=== PATIENT | male | born 1995 | race Caucasian/White ===

== ENCOUNTER 2025-03-20 09:23 | Emergency (ER) | payer MEDICAID ==
[~2025-03-20] VITALS: Ht 182.9 cm; Wt 65.9 kg
[~2025-03-20 09:23] MED LIST: BUSP5TAB20 PO; POLY17PO62 PO; QUET200T30 PO; QUET300T19 PO
[2025-03-20 09:53] LABS: COVID AG,FIA SOURCE NASAL SWAB
[2025-03-20 10:04] VITALS: BP 118/75; PULSE 86; RESP 18; TEMP 98.1; O2SAT 99
[2025-03-20 10:08] LABS: PLATELET COUNT (AUTO) 263 K/uL (150-450); RED BLOOD CELL COUNT(AUTO) 3.94 MIL/uL (4.50-5.90); RED CELL DISTRIBUTION WIDTH 14.3 % (11.5-14.5); WHITE BLOOD COUNT (AUTO) 10.0 K/uL (4.5-11.0)
[2025-03-20 10:13] LABS: SARS-COV2 (COVID) ANTIGEN,FIA Negative (Negative)
[2025-03-20 10:14] LABS: CALCIUM, TOTAL 8.8 mg/dL (8.8-10.5); CREATININE 0.52 mg/dL (0.60-1.30); GLOMERULAR FILTR. RATE CALC > 60 mL/min (>60); GLUCOSE,RANDOM 98 mg/dL (70-110); SODIUM SERUM 143 mmol/L (136-145); UREA NITROGEN, BLOOD 8 mg/dL (7-18)
== END 2025-03-20 12:17 | disposition short-term general hospital (02) ==
LOC: EMS 09:28
DX: F25.0 Schizoaffective disorder, bipolar type (principal); R45.851 Suicidal ideations; F12.90 Cannabis use, unspecified, uncomplicated; Z79.899 Other long term (current) drug therapy; Z20.822 Contact with and (suspected) exposure to COVID-19
CPT/HCPCS: 99285; 87426; 80048; 85025; 36415; G0480

== ENCOUNTER 2025-03-20 17:49 | Inpatient (IN) | payer MEDICAID ==
[~2025-03-20] VITALS: Ht 182.9 cm; Wt 66.4 kg
[2025-03-20 21:30] VITALS: BP 126/72; PULSE 72; RESP 18; TEMP 98.2; O2SAT 99
[2025-03-20] MEDS: INFLUENZA VIRUS VACCINE TVS (6MO+) 2025-26/PF 45 MCG/0.5 ML SYRINGE IM. ONE (22:57)
[2025-03-21] MEDS: ZOLPIDEM TARTRATE 10 MG TABLET PO PRN (01:38)
[2025-03-21] MEDS ORDERED: ALBUTEROL SULFATE HFA 90 MCG/PUFF 8 GM INHALER IH PRN (05:45)
[2025-03-21] MEDS ORDERED: BENZOCAINE/MENTHOL [CEPACOL] LOZENGE PO PRN (05:45)
[2025-03-21] MEDS ORDERED: MAG HYDROX/ALUMINUM HYD/SIMETH ES 30 ML SUSPENSION UDCUP PO PRN (05:45)
[2025-03-21] MEDS ORDERED: OMEPRAZOLE 20 MG CAPSULE PO PRN (05:45)
[2025-03-21] MEDS ORDERED: PETROLATUM,WHITE 28 GM JELLY TP PRN (05:45)
[2025-03-21] MEDS ORDERED: ACETAMINOPHEN 325 MG TABLET PO PRN (05:45)
[2025-03-21] MEDS ORDERED: BACITRACIN 28 GM OINTMENT TP PRN (05:45)
[2025-03-21] MEDS ORDERED: LOPERAMIDE HCL 2 MG CAPSULE PO PRN (05:45)
[2025-03-21] MEDS ORDERED: ONDANSETRON 4 MG TABLET PO PRN (05:45)
[2025-03-21 08:29] VITALS: BP 102/64; PULSE 60; RESP 16; TEMP 98.6; O2SAT 99
[2025-03-21 10:12] LABS: PLATELET COUNT (AUTO) 264 K/uL (150-450); RED BLOOD CELL COUNT(AUTO) 3.82 MIL/uL (4.50-5.90); RED CELL DISTRIBUTION WIDTH 14.1 % (11.5-14.5); WHITE BLOOD COUNT (AUTO) 12.2 K/uL (4.5-11.0)
[2025-03-21 10:30] LABS: ASPARTATE AMINOTRANSFERASE 60 U/L (15-37); CALCIUM, TOTAL 9.1 mg/dL (8.8-10.5); CHOL/HDL RATIO 3.9 (4.2-7.3); CREATININE 0.45 mg/dL (0.60-1.30); GLOMERULAR FILTR. RATE CALC > 60 mL/min (>60); GLUCOSE,RANDOM 87 mg/dL (70-110); LDL CHOL (CALC.) 82 mg/dL (0-130); SODIUM SERUM 137 mmol/L (136-145); TOTAL PROTEIN, SERUM 6.5 g/dL (6.4-8.2); UREA NITROGEN, BLOOD 13 mg/dL (7-18)
[2025-03-21 10:51] LABS: ALCOHOL, BLOOD (SERUM) < 3 mg/dL (0-10)
[2025-03-21 20:20] VITALS: BP 105/61; PULSE 85; RESP 19; TEMP 98; O2SAT 98
[2025-03-22 00:15] VITALS: BP 107/68; PULSE 89; RESP 18; TEMP 98.6; O2SAT 97
[2025-03-22 08:06] VITALS: BP 111/63; PULSE 86; RESP 18; TEMP 97.6; O2SAT 99
[2025-03-22 09:47] LABS: APPEARANCE,URINE HAZY (CLEAR); GLUCOSE, URINE (UA) NEGATIVE (NEGATIVE); LEUKOCYTE ESTERASE ,URINE NEGATIVE (NEGATIVE); NITRATE,URINE NEGATIVE (NEGATIVE); OCCULT BLOOD,URINE NEGATIVE (NEGATIVE); PH,URINE DRUG SCREEN 7.5 (5.0-8.0); SPECIFIC GRAVITIY, URINE 1.015 (1.003-1.030)
[2025-03-22 09:54] LABS: ALCOHOL, URINE DRUG SCREEN NEGATIVE (NEGATIVE); AMPHET/METH SCREEN,URINE NEGATIVE (NEGATIVE); BARBITURATE SCREEN, URINE NEGATIVE (NEGATIVE); CANNABINOID SCREEN,URINE NEGATIVE (NEGATIVE); COCAINE SCREEN,URINE NEGATIVE (NEGATIVE); METHADONE SCREEN, URINE NEGATIVE (NEGATIVE)
[2025-03-22] MEDS: CIPROFLOXACIN HCL 0.3% 2.5 ML OPHTHALMIC SOLUTION AD SCH (16:18)
[2025-03-22 21:37] VITALS: BP 104/63; PULSE 73; RESP 17; TEMP 97.3; O2SAT 99
[2025-03-23 06:03] VITALS: BP 110/72; PULSE 76; RESP 18; TEMP 97.5; O2SAT 99
[2025-03-23 07:03] VITALS: RESP 16
[2025-03-23 08:43] VITALS: RESP 17
[2025-03-24 02:41] VITALS: RESP 16
[2025-03-24 08:20] VITALS: BP 107/67; PULSE 90; RESP 18; TEMP 98.1; O2SAT 98
[2025-03-24] MEDS: AMOXICILLIN TRIHYDRATE 500 MG CAPSULE PO SCH (16:27)
[2025-03-24] MEDS: IBUPROFEN 600 MG TABLET PO PRN (16:48)
[2025-03-25 08:23] VITALS: BP 98/62; PULSE 80; RESP 17; TEMP 98.6; O2SAT 99
[2025-03-25] MEDS: DOCUSATE SODIUM 100 MG CAPSULE PO PRN (12:37)
[2025-03-25] MEDS: NICOTINE 14 MG/24 HOUR PATCH TD SCH (17:11)
[2025-03-25 20:28] VITALS: BP 92/66; PULSE 78; RESP 19; TEMP 98; O2SAT 100
[2025-03-26 15:10] VITALS: TEMP 98.2
[2025-03-26] MEDS: MAGNESIUM HYDROXIDE SUSPENSION 30 ML UDCUP PO PRN (16:46)
[2025-03-26 17:36] VITALS: BP 104/63; PULSE 67; RESP 17; TEMP 98.3; O2SAT 98
[2025-03-26 20:21] VITALS: BP 106/61; PULSE 77; RESP 16; TEMP 98.3; O2SAT 98
[2025-03-27 08:12] VITALS: BP 100/65; PULSE 89; RESP 17; TEMP 98.5; O2SAT 99
[2025-03-27 08:57] LABS: PLATELET COUNT (AUTO) 295 K/uL (150-450); RED BLOOD CELL COUNT(AUTO) 3.86 MIL/uL (4.50-5.90); RED CELL DISTRIBUTION WIDTH 15.3 % (11.5-14.5); WHITE BLOOD COUNT (AUTO) 8.3 K/uL (4.5-11.0)
[2025-03-27 09:32] LABS: ASPARTATE AMINOTRANSFERASE 21 U/L (15-37); CALCIUM, TOTAL 9.0 mg/dL (8.8-10.5); CREATININE 0.60 mg/dL (0.60-1.30); GLOMERULAR FILTR. RATE CALC > 60 mL/min (>60); GLUCOSE,RANDOM 105 mg/dL (70-110); PHOSPHORUS 3.9 mg/dL (2.5-4.9); SODIUM SERUM 139 mmol/L (136-145); TOTAL PROTEIN, SERUM 6.7 g/dL (6.4-8.2); UREA NITROGEN, BLOOD 12 mg/dL (7-18)
[2025-03-27 20:14] VITALS: BP 92/69; PULSE 88; RESP 17; TEMP 98.5; O2SAT 99
[2025-03-28 08:26] VITALS: BP 102/62; PULSE 84; RESP 18; TEMP 97.9; O2SAT 100
[2025-03-28] MEDS ORDERED: AMOX500C2 PO (10:25)
[2025-03-29 02:07] LABS: HEPATITIS B CORE IGM Negative (Negative); HEPATITIS C AB (EIA) Non Reactive (Non Reactive)
== END 2025-03-28 12:00 | disposition home or self-care (01) | DRG 761 ==
LOC: B3A 20:49
PROVIDERS: ADMIT Psychiatry & Neurology Psychiatry; ATTEND Psychiatry & Neurology Psychiatry
PROC: GZ58ZZZ Individual Psychotherapy, Cognitive-Behavioral (ICD-10-PCS; 2025-03-21)
PROC: GZ56ZZZ Individual Psychotherapy, Supportive (ICD-10-PCS; 2025-03-21)
PROC: GZHZZZZ Group Psychotherapy (ICD-10-PCS; principal; 2025-03-25)
DX: F25.0 Schizoaffective disorder, bipolar type (principal); R45.851 Suicidal ideations; F12.10 Cannabis abuse, uncomplicated; F41.9 Anxiety disorder, unspecified; G47.00 Insomnia, unspecified; H66.90 Otitis media, unspecified, unspecified ear; I10 Essential (primary) hypertension; K04.7 Periapical abscess without sinus; K05.6 Periodontal disease, unspecified; F10.90 Alcohol use, unspecified, uncomplicated; Y90.0 Blood alcohol level of less than 20 mg/100 ml; K59.00 Constipation, unspecified; Z53.20 Procedure and treatment not carried out because of patient's decision for unspecified reasons; Z72.0 Tobacco use; Z79.899 Other long term (current) drug therapy
CPT/HCPCS: 80053; 80061; 80074; 80307; 81003; 83036; 83735; 84100; 84436; 84443; 85025; 86592; 87389; G0480

== ENCOUNTER 2025-03-21 21:43 | Emergency (ER) | payer MEDICAID ==
[~2025-03-21] VITALS: Ht 167.6 cm; Wt 68.2 kg
[2025-03-21 21:58] VITALS: TEMP 98.3
[2025-03-21] MEDS: CIPROFLOXACIN HCL 0.3% 2.5 ML OPHTHALMIC SOLUTION AD ONE (22:46)
[2025-03-21 23:25] VITALS: BP 105/61; PULSE 92; RESP 16; O2SAT 98
== END 2025-03-21 23:33 | disposition home or self-care (01) ==
LOC: EMS 21:44
DX: T16.1XXA Foreign body in right ear, initial encounter (principal); H60.91 Unspecified otitis externa, right ear; F12.90 Cannabis use, unspecified, uncomplicated; F20.9 Schizophrenia, unspecified; Z79.899 Other long term (current) drug therapy; W44.9XXA Unspecified foreign body entering into or through a natural orifice, initial encounter
CPT/HCPCS: 99283; 99284